=== PATIENT | female | born 1975 | race Caucasian/White ===

== ENCOUNTER 2023-10-24 17:20 | Emergency (ER) | payer OTHER, SELFPAY ==
[2023-10-24] VITALS (11 sets, daily range): BP systolic 106–157; BP diastolic 67–93; PULSE 65–98; RESP 15–23; TEMP 36.8; O2SAT 96–100; BMI 23.8
--- NOTE | 2023-10-24 17:30 | DI.RAD.S_ITS ---
PROCEDURE: XR WRIST RT MIN 3V INDICATIONS: fall/injury/pain TECHNIQUE: 4 views of the wrist were acquired. COMPARISON: None. FINDINGS: Bones: Comminuted intra-articular distal radial fracture with dorsal displacement of the distal fragment. Ulna styloid fracture is also present. Soft tissues: No suspicious soft tissue calcifications. IMPRESSION: Comminuted intra-articular distal radial fracture with displacement. Ulna styloid fracture. Dictated by: Val Bernard M.D. on 10/24/2023 at 18:12 Approved by: Val Bernard M.D. on 10/24/2023 at 18:12
--- NOTE | 2023-10-24 18:50 | PC.NURSE ---
last dose of ibuprofen per pt is 400mg at 1700, pt has been elevating and icing
[2023-10-24] MEDS: ONDANSETRON 4 MG/2 ML INJ IV (19:49)
[2023-10-24] MEDS: HYDROMORPHONE 0.5 MG INJ IV (19:49)
--- NOTE | 2023-10-24 22:39 | ED_ITS ---
HPI - Extremity Injury (Upper) General Chief Complaint: Extremity Injury, Upper Stated Complaint: fell last night on rt arm Time Seen by Provider: 10/24/23 18:14 Source: patient Mode of arrival: Ambulatory History of Present Illness HPI narrative: 48-year-old female fell about 2:00 p.m. earlier today on gravel outside at private residence of a friend on [facility] where she lives, splinted by medics, had to take very to [facility], POV transport further here, still having right wrist pain. Denies injury to the right hand and fingers, denies injury to the right elbow arm shoulder. Denies pain or injury to head, face, neck, upper back, lower back, chest, abdomen, pelvis. No pain to left lower extremity or to either lower extremity. History of old knee ligament injury but no increased knee pains. Related Data Previous Rx's Medication Instructions Recorded oxycodone-acetaminophen 5 mg-325 1 tab PO Q6H PRN pain #20 tabs 10/25/23 mg tablet Allergies Allergy/AdvReac Type Severity Reaction Status Date / Time No Known Drug Allergies Allergy Verified 10/24/23 17:27 Review of Systems Review of Systems Narrative: per HPI Patient History Social History Smoking Status: Current every day smoker Smoking Status: Current every day smoker tobacco type: cigarettes Substance Use Type: marijuana Exam Narrative Exam Narrative: GENERAL: Well-developed patient, in mild distress. HEAD: Atraumatic. Normocephalic. EYES: Pupils equal round and reactive. Extraocular motions intact. No scleral icterus. No injection or drainage. ENT: Nose without bleeding, purulent drainage. Throat without erythema, tonsillar hypertrophy or exudate. Airway patent. NECK: Trachea midline. Non tender CARDIOVASCULAR: Regular rate and rhythm without murmurs, gallops, or rubs. RESPIRATORY: Clear to auscultation. Breath sounds equal bilaterally. No wheezes, rales, or rhonchi. GASTROINTESTINAL: Abdomen soft, non-tender, nondistended. EXTREMITIES: Tenderness to right distal wrist, some swelling, no laceration, no abrasion. Good cap refill distal fingers, good radial pulse. No tenderness to fingers or hand ipsilateral. No tenderness or swelling to proximal forearm, wrist, upper arm, shoulder. Left upper extremity atraumatic. No trauma obvious to bilateral legs, normal range of motion hip and knee flexion extension. No edema or joint tenderness. BACK: Nontender without deformity or crepitance. No flank tenderness. NEURO: AOx3. SKIN: No rash or erythema of visible areas Initial Vital Signs Initial Vital Signs: Vital Signs Temperature 98.3 F 10/24/23 17:27 Pulse Rate 98 H 10/24/23 17:27 Respiratory Rate 15 10/24/23 17:27 Blood Pressure 122/67 10/24/23 17:27 Pulse Oximetry 98 10/24/23 17:27 Oxygen Delivery Method Room Air 10/24/23 17:27 Procedures Orthopedic Fracture Reduction Fracture #1: Time Out Performed: Yes Side: right Fracture Reduction Location: radius Analgesia: procedural sedation Technique: direct manipulation and traction/counter-traction Post Reduction X-rays Demonstrate: acceptable reduction Post-reduction neuro exam: intact Post-reduction vascular exam: intact Splint Applied: Yes Patient Tolerated Procedure: Well Procedural Sedation Time of procedure: 23:52 Consent signed: Yes Time out performed: Yes Indication: fracture/dislocation reduction Presedation Evaluation: Prior sedation and surgeries without incident, no dental issues, no obesity, no neck problems ASA Class: I Mallampati Airway Classification: Class I Time of Last PO Intake: 18:00 Preparation: monitoring and evaluation advisor applied, pulse oximeter, supplemental O2 applied, reversal agents at bedside, suction/airway equipment at bedside and IV secured IV Propofol dose (mg): 200 ED Sedation Level: Moderate (Concious) Patient Tolerated Procedure: Well Complications: none Additional Comments: Returned to preprocedural baseline, postprocedure x-ray improved position Course Orders Ordered: Discontinued Medications Hydromorphone HCl (Hydromorphone 0.5 Mg Inj) 0.5 mg IV NOW ONE Stop: 10/24/23 19:17 Last Admin: 10/24/23 19:49 Dose: 0.5 mg Documented By: RO Ondansetron HCl (Ondansetron 4 Mg/2 Ml Inj) 4 mg IV NOW ONE Stop: 10/24/23 19:38 Last Admin: 10/24/23 19:49 Dose: 4 mg Documented By: RO Oxycodone/Acetaminophen (Oxycodone/Acetaminophen 5/325 Tablet) 1 tab PO NOW ONE Stop: 10/25/23 00:01 Last Admin: 10/25/23 00:19 Dose: 1 tab Documented By: CHARLES Oxycodone/Acetaminophen (Oxycodone/Apap 5/325 Prepack) 1 bottle MISC DIRECTED ONE Stop: 10/25/23 00:01 Last Admin: 10/25/23 01:13 Dose: 1 bottle Documented By: CHARLES Propofol (Propofol 200 Mg/20 Ml Vial) 120 mg 2 mg/kg (120 mg) IV NOW ONE Stop: 10/24/23 23:26 Propofol (Propofol 200 Mg/20 Ml Vial) 200 mg IV NOW ONE Stop: 10/25/23 23:27 Propofol (Propofol 200 Mg/20 Ml Vial) 200 mg IV NOW ONE Stop: 10/24/23 23:27 Last Admin: 10/25/23 00:33 Dose: 200 mg Documented By: CHARLES Vital Signs Vital signs: Vital Signs - 8 hr 10/24/23 17:27 10/24/23 20:49 10/24/23 21:00 Temperature 98.3 F Pulse Rate 98 H 65 80 Respiratory Rate 15 Blood Pressure 122/67 Pulse Oximetry 98 100 98 Oxygen Delivery Method Room Air Oxygen Flow Rate 10/24/23 21:30 10/24/23 22:00 10/24/23 23:32 Temperature Pulse Rate 80 74 67 Respiratory Rate 16 Blood Pressure 136/93 H Pulse Oximetry 96 97 99 Oxygen Delivery Method Oxygen Flow Rate 2 10/24/23 23:33 10/24/23 23:33 10/24/23 23:36 Temperature Pulse Rate 78 77 Respiratory Rate Blood Pressure 119/87 Pulse Oximetry 99 100 Oxygen Delivery Method Oxygen Flow Rate 10/24/23 23:36 10/24/23 23:40 10/24/23 23:40 Temperature Pulse Rate 77 Respiratory Rate 23 Blood Pressure 106/67 135/85 Pulse Oximetry 98 Oxygen Delivery Method Oxygen Flow Rate 10/24/23 23:45 10/24/23 23:45 10/24/23 23:58 Temperature Pulse Rate 67 88 Respiratory Rate 20 Blood Pressure 136/93 H Pulse Oximetry 99 96 Oxygen Delivery Method Oxygen Flow Rate 10/24/23 23:58 10/25/23 00:00 10/25/23 00:00 Temperature Pulse Rate 86 Respiratory Rate Blood Pressure 157/87 H 149/74 H Pulse Oximetry 100 Oxygen Delivery Method Oxygen Flow Rate MDM - Extremity Injury (Upper) Differential Diagnosis Differential diagnosis: Likely sprain and strain of wrist, fracture of wrist, Colles' fracture and other Lab Data Labs: Point of Care Testing Test Results Negative Imaging Data Extremity x-ray #2: Attestation: I personally reviewed and interpreted this imaging study as follows: My Impression: improved post-reduction distal radius Colle's fracture, small ulanr styloid fracture also noted Radiologist's Impression: [address] [address] XRay Report Signed Patient: Donell Ventura MR#: [id number] : 1975 Acct:[id number] Age/Sex: 48 / F Date of Service: 10/24/23 Loc: ED Accession Number: [id number] Procedure: XR wrist RT 2V Ordering Provider: Melo Vivas MD PROCEDURE: XR WRIST RT 2V INDICATIONS: post reduction TECHNIQUE: Two views of the wrist were acquired. COMPARISON: [facility] , XR WRIST RT MIN 3V, 10/24/2023, 17:31. FINDINGS: Bones: Splint material is in place. There is improved alignment of a comminuted, intra-articular distal radius fracture. The ulnar styloid fracture is still visible. Radiocarpal alignment is with in normal limits. Slight ulnar negative variance. Soft tissues: No suspicious soft tissue calcifications. IMPRESSION: Overall improved positioning post reduction and splinting. Dictated by: Marnie Oquendo M.D. on 10/25/2023 at 0:53 Approved by: Marnie Oquendo M.D. on 10/25/2023 at 0:54 Extremity x-ray #1: My Impression: angulated distal radius fracture, ulnar styloid fracture, apex angle volar, Colles fracture type Radiologist's Impression: [address] [address] XRay Report Signed Patient: Donell Ventura MR#: [id number] : 1975 Acct:[id number] Age/Sex: 48 / F Date of Service: 10/24/23 Loc: ED Accession Number: [id number] Procedure: XR wrist RT min 3V Ordering Provider: Elaina Acevedo D.O. PROCEDURE: XR WRIST RT MIN 3V INDICATIONS: fall/injury/pain TECHNIQUE: 4 views of the wrist were acquired. COMPARISON: None. FINDINGS: Bones: Comminuted intra-articular distal radial fracture with dorsal displacement of the distal fragment. Ulna styloid fracture is also present. Soft tissues: No suspicious soft tissue calcifications. IMPRESSION: Comminuted intra-articular distal radial fracture with displacement. Ulna styloid fracture. Dictated by: Val Bernard M.D. on 10/24/2023 at 18:12 Approved by: Val Bernard M.D. on 10/24/2023 at 18:12 [facility] Narrative Medical decision making narrative: Ground level fall [facility] earlier this afternoon, splinted, tenderness on exam, x-ray shows comminuted fracture Colles right distal radius with angulation, also ulnar styloid fracture, we will need reduction. IV Dilaudid, awaiting gathering of materials and availability of staph or reduction Conscious sedation for reduction, successful, see separate procedure note, tolerated sensation well, good anatomic result in splint, good cap refill in splinting. P.o. Percocet dose Case discussed with Orthopedic surgery Dr. Costello, can see patient early next week for planning definitive ORIF surgical fixation, patient to call office Friday to arrange further appointment time Critical Care Time Critical Care Time Total Critical Care Time: 31 Attestation: The high probability of a clinically significant, sudden or life threatening deterioration of the [musculoskeletal, peripheral vascular] system(s) required my full and direct attention, intervention and personal management. The aggregate critical care time was [31] minutes. This time is in addition to time spent performing reported procedures but includes the following: [x] Data Review and interpretation [x] Patient assessment and monitoring of vital signs [x] Documentation [x] Medication orders and management Discharge Plan Departure Patient Disposition: Home Clinical Impression: Distal radius fracture, right, Fracture of right ulnar styloid Instructions: DI for Distal Radius Fracture Activity Restrictions/Additional Instructions: Ground level fall yesterday afternoon, x-ray showed fracture of distal radius and a small ulnar styloid fracture, with angulation of the distal radius. IV conscious sedation was used to facilitate splinting and reduction to better position. Straightening improved. Fracture is bad enough however well it would likely need surgical fixation for definitive care. Contact information given for local orthopedic surgery Dr. Campos, contact his office on Friday to coordinate surgical fixation follow up. Keep splint, use sling, keep elevated. Use pain medications as directed. Return earlier to this/nearest emergency department for any change worsening symptoms or any concerns prior Prescriptions: New oxycodone-acetaminophen 5-325 mg tablet 1 tab PO Q6H PRN (Reason: pain) Qty: 20 0RF Referrals: Arcadio Campos MD [Physician] - Stand Alone Forms: Patient Portal/API
--- NOTE | 2023-10-24 23:38 | DI.RAD.S_ITS ---
PROCEDURE: XR WRIST RT 2V INDICATIONS: post reduction TECHNIQUE: Two views of the wrist were acquired. COMPARISON: [facility], , XR WRIST RT MIN 3V, 10/24/2023, 17:31. FINDINGS: Bones: Splint material is in place. There is improved alignment of a comminuted, intra-articular distal radius fracture. The ulnar styloid fracture is still visible. Radiocarpal alignment is with in normal limits. Slight ulnar negative variance. Soft tissues: No suspicious soft tissue calcifications. IMPRESSION: Overall improved positioning post reduction and splinting. Dictated by: Marnie Oquendo M.D. on 10/25/2023 at 0:53 Approved by: Marnie Oquendo M.D. on 10/25/2023 at 0:54
[2023-10-25] VITALS: BP 149/74; PULSE 86; O2SAT 100
--- NOTE | 2023-10-25 00:06 | PC.NURSE ---
Pt restless in bed, almost inconsolable. Pt splint assessed, pt does have sensation and is able to move her fingers. KATELYN Vivas to bedside to assess the splint.
[2023-10-25] MEDS: OXYCODONE/ACETAMINOPHEN 5/325 TABLET 1 TAB PO (00:19)
[2023-10-25] MEDS: propofoL 200 MG/20 ML VIAL IV (00:33)
[2023-10-25] MEDS: OXYCODONE/APAP 5/325 PREPACK 1 BOTTLE MISC (01:13)
[2023-10-25 01:46] VITALS: BP 158/99; PULSE 71; RESP 16; O2SAT 99
== END 2023-10-25 01:49 | disposition home or self-care (01) ==
PROVIDERS: Emergency Provider Emergency Medicine
DX: S52.501A Unspecified fracture of the lower end of right radius, initial encounter for closed fracture (principal); S52.611A Displaced fracture of right ulna styloid process, initial encounter for closed fracture; W18.30XA Fall on same level, unspecified, initial encounter
CPT/HCPCS: 25605; 73100; 73110; 99152; 99284; J1170; J2405; J2704